=== PATIENT | male | born 1995 | race Caucasian/White ===

== ENCOUNTER 2016-07-05 11:44 | Inpatient (IN) | payer OTHER ==
[~2016-07-05] VITALS: Ht 172.7 cm; Wt 72.6 kg
[2016-07-05 12:51] LABS: MEAN CORPUSCULAR HEMOGLOBIN 29.6 pg (27.0-33.0); RED CELL DISTRIBUTION WIDTH 13.2 % (11.5-14.5); WHITE BLOOD COUNT 9.7 K/mm3 (4.0-10.0)
[2016-07-05 13:06] LABS: AMPHETAMINES LEVEL URINE NEGATIVE (NEGATIVE); BENZODIAZEPINES URINE NEGATIVE (NEGATIVE); COCAINE METABOLITE URINE NEGATIVE (NEGATIVE); CONTROL LINE INT CTR LINE PRESENT; METHADONE URINE NEGATIVE (NEGATIVE); OPIATES URINE NEGATIVE (NEGATIVE); TRICYCLIC ANTIDEPRESS URINE NEGATIVE (NEGATIVE)
[2016-07-05 13:36] LABS: ALBUMIN 4.5 GM/DL (3.2-5.2); ALBUMIN/GLOBULIN RATIO 1.45 (1.00-1.93); ALKALINE PHOSPHATASE 96 U/L (45-117); ALT/SGPT 23 U/L (12-78); ANION GAP 8 MEQ/L (8-16); AST/SGOT 17 U/L (15-37); BILIRUBIN,DIRECT 0.1 MG/DL (0.0-0.2); BILIRUBIN,TOTAL 0.5 MG/DL (0.2-1.0); BLOOD UREA NITROGEN 11 MG/DL (7-18); CALCIUM LEVEL 9.2 MG/DL (8.5-10.1); CARBON DIOXIDE LEVEL 29 MEQ/L (21-32); CHLORIDE LEVEL 102 MEQ/L (98-107); CREATININE FOR GFR 1.19 MG/DL (0.70-1.30); GLOMERULAR FILTRATION RATE > 60.0 (>60); GLUCOSE, FASTING 87 MG/DL (70-105); POTASSIUM SERUM 4.7 MEQ/L (3.5-5.1); SODIUM LEVEL 139 MEQ/L (136-145); TOTAL PROTEIN 7.6 GM/DL (6.4-8.2)
--- NOTE | 2016-07-05 17:56 | EDDOCDS ---
Physician Documentation [facility] Name: Tani De La Paz Age: 21 yrs Sex: Male : 1995 Arrival Date: 07/05/2016 Time: 11:44 Bed [facility] Private MD: Disposition: 07/05/16 14:17 Hospitalization ordered by Manish Solis for Inpatient Admission. Preliminary diagnosis is Major depressive disorder, single episode. - Bed requested for Admit. - Status is Inpatient Admission. ms2 - Condition is Stable. - Problem is new. - Symptoms are unchanged. Historical: - Allergies: no known allergies; - Home Meds: 1. none - PMHx: none; - PSHx: right knee surgery; left 5th toe was removed Xtra toe; - Social history: Smoking status: Patient uses tobacco products, current some day smoker. No barriers to communication noted, The patient speaks fluent South Korean. - Family history: Not pertinent. - : The pt / caregiver states he / she is not on anticoagulants. Home medication list is obtained from the patient. - Exposure Risk Screening:: None identified. Vital Signs: 07/05 11:52 BP 134 / 77; Pulse 76; Resp 20 S; Pulse Ox 99% on R/A; Weight 74.84 kg / 164.99 lbs; ms2 Height 5 ft. 8 in. (172.72 cm); Pain 4/10; 17:49 BP 145 / 85; Pulse 73; Resp 20 S; Temp 97.9(T); Pulse Ox 100% on R/A; ms2 11:52 Body Mass Index 25.09 (74.84 kg, 172.72 cm) ms2 11:52 right ankle ms2 MDM: 11:50 Consult PFS/PSA/Photography Teacher ordered. sd1 11:50 Consult PFS/PSA/Photography Teacher: Patient's case requires discussion with on-call sd1 Psychiatrist ordered. 11:50 PSA/PFS to call Nursing Nut Chopper, to enter patient data on [place] Safe Act if patient sd1 involuntarily admitted or transferred for SI or HI ordered. 11:50 Confirm accurate psychiatric medication list and times of last dosage ordered. sd1 11:50 Detain Pt Until Medically/PFS Cleared ordered. sd1 11:50 Acetaminophen Level Ordered. EDMS 11:50 Basic Metabolic Profile Ordered. EDMS 11:50 Complete Blood Count Ordered. EDMS 11:50 Drug Eval Toxicology ED Only Ordered. EDMS 11:50 Ethyl Alcohol (ethanol) Ordered. EDMS 11:50 Liver Profile Ordered. EDMS 11:50 Salicylate Level Ordered. EDMS 11:50 Thyroid Stimulating Hormone Ordered. EDMS 12:13 REGULAR DIET PLASTIC HERNANDEZ+DIET ordered. EDMS 12:26 Consult PFS/PSA/Photography Teacher complete. ml4 12:26 Consult PFS/PSA/Photography Teacher: Patient's case requires discussion with on-call ml4 Psychiatrist complete. 12:26 PSA/PFS to call Nursing Nut Chopper, to enter patient data on [place] Safe Act if patient ml4 involuntarily admitted or transferred for SI or HI complete. 13:52 Acetaminophen Level Reviewed. sd1 13:52 Salicylate Level Reviewed. sd1 13:52 Basic Metabolic Profile Reviewed. sd1 13:52 Complete Blood Count Reviewed. sd1 13:52 Drug Eval Toxicology ED Only Reviewed. sd1 13:52 Ethyl Alcohol (ethanol) Reviewed. sd1 13:52 Liver Profile Reviewed. sd1 13:52 Thyroid Stimulating Hormone Reviewed. sd1 14:36 [facility] Payment Agreement was scanned into [employer] and attached to record. jp5 14:36 Financial registration complete. jp5 15:14 Admit to IMHU: ordered. EDMS 15:14 REGULAR DIET ordered. EDMS 15:31 M[facility] Legal paperwork was scanned into [employer] and attached to record. ml4 16:38 REGULAR DIET PLASTIC HERNANDEZ+DIET ordered. EDMS Signatures: Dispatcher [employer] EDMS Radha Carrera MD MD sd1 Jack Sprague,RN RN ms2 Gayla Barragan, PSA PSA ml4 Nette Chawla jp5 The chart was reviewed and I authenticate all verbal orders and agree with the evaluation and treatment provided.Attachments: 14:36 [facility] Payment Agreement jp5 MTDD
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
[2016-07-05 18:09] VITALS: BP 132/86
[2016-07-05] MEDS ORDERED: MOM 30ML SUSPENSION UDC PO PRN (19:15)
[2016-07-05] MEDS ORDERED: traZODone 50 MG TAB PO PRN (19:15)
[2016-07-05] MEDS ORDERED: IBUPROFEN 400 MG TAB PO PRN (19:15)
[2016-07-05] MEDS ORDERED: MAALOX 30 ML SUSP *UDC PO PRN (19:15)
[2016-07-06 06:44] VITALS: BP 142/76
--- NOTE | 2016-07-06 11:13 | HPEPDOC ---
Medical History and Physical Date of Admission Jul 05, 2016 at 18:04 History and Physical PCP: [facility] ATTENDING: Dr. Star Rapp HPI: 21yoM admitted to [facility] for MDD, being medically examined today. No acute medical complaints today. Patient states had fallen down stairs on . He had a scalp laceration however brock were removed on Monday as per PCP. The patient had also experienced a right ankle sprain and has been wearing an ankle brace however related to laces he is unable to wear on the unit. He does not wish to use an Aircast at this time. He has been referred to physical therapy however is pending at this time. Denies any fevers, chills, weakness, fatigue, LOVE, CP, SOB, cough, palpitations, abdominal pain, N/V/D or changes in bowel or bladder habits. 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 FAMHX: Mother: Alive, hypertension, diabetes Father: , alcoholic cirrhosis Siblings: 2 brothers Alive, alcoholic. One sister healthy Children: Alive, well Unexpected deaths due to medical reasons: None. ROS: As noted in HPI, otherwise 11pt ROS of systems reviewed and unremarkable. PE: GEN: 21yoM, appears stated age. Well-nourished, well developed. No acute distress. Alert and oriented x 3. Pleasant, interactive. HEENT: Normocephalic, atraumatic. Pupils are equal, round, and reactive to light. Extraocular movements are intact. No nystagmus appreciated. Sclera are nonicteric. Conjunctiva without injection. Nose midline. Nasal turbinates without bogginess. EACs both patent BL. TMs both visualized and king with good cone of light, no bulging or erythema. No facial asymmetry. Moist mucous membranes. Dentition fair. Pharynx pink and moist, no cobblestoning. Neck supple , trachea midline. No lymphadenopathy or thyromegaly appreciated. CHEST: Regular rate and rhythm, +S1, +S2 LUNGS: Clear to auscultation bilaterally. No wheezes, rales, or rhonchi. Breathing appears symmetric and easy. Patient is speaking in full sentences. No accessory muscle use. ABD: Round, soft, non-tender, non-distended. +Bowel sounds throughout. No rebound or guarding. No costovertebral angle tenderness. EXT: Pulses 2+ bilaterally dorsalis pedis and radial. No lower extremity edema appreciated. SKIN: [place], dry, warm. Capillary refill <2sec. few healing lacerations left forearm (pt states self inflicted 2 weeks ago). NEURO: Alert and oriented x 3. Cranial nerves III-XII are intact. No focal deficits appreciated. EKG: pending. A&P: 21yoM admitted to [facility] for MDD 1. Psych. Plan per Psychiatry. Obtain baseline EKG to assure the safety of psychiatric medications as they can prolong the QT interval. 2. History of scalp laceration. healed. Brock previously removed. 3. History of fall/right ankle sprain. Patient previously wearing brace, however unable to wear related to laces. Patient declines Aircast this time. PT eval and treat as needed. Ibuprofen as needed. 4. Follow up with PCP on discharge. [facility]. 5. Substance use. Withdrawal per psychiatry. Continue with MVI, Thiamine, and Folic Acid supplementation. 6. Staff member present throughout exam, Phani parekh. Vital Signs Vital Signs Label Value Date Time Patient Temperature 97.4 degrees F 07/06/16 0644 Temperature Source Tympanic 07/06/16 0644 Pulse 77 07/06/16 0644 Respiratory Rate 16 bpm 07/06/16 0644 Blood Pressure Assessment 142/76 (98) 07/06/16 0644 Laboratory Data Labs 24H Laboratory Tests 2 07/05/16 12:05: Acetaminophen Level < 2.0L, Aspartate Amino Transf (AST/SGOT) 17, Alanine Aminotransferase (ALT/SGPT) 23, Alkaline Phosphatase 96, Total Bilirubin 0.5, Direct Bilirubin 0.1, Albumin 4.5, Albumin/Globulin Ratio 1.45, Anion Gap 8, Calcium Level 9.2, Ethyl Alcohol Level < 0.003, Glomerular Filtration Rate > 60.0, Salicylates Level < 1.7L, Thyroid Stimulating Hormone (TSH) 0.707, Total Protein 7.6, Urine Amphetamine Level NEGATIVE, Urine Benzodiazepines Screen NEGATIVE, Urine Cannabinoids NEGATIVE, Urine Cocaine Metabolite NEGATIVE, Urine Opiates Screen NEGATIVE, Urine Barbiturates, Qualitative NEGATIVE, Urine Methadone Screen NEGATIVE, Urine Tricyclic Antidepressants NEGATIVE CBC/BMP Laboratory Tests 07/05/16 12:05 Red Blood Count 5.24, Mean Corpuscular Volume 87.0, Mean Corpuscular Hemoglobin 29.6, Mean Corpuscular Hemoglobin Concent 34.0, Red Cell Distribution Width 13.2 Home Medications No Active Prescriptions or Reported Meds Allergies Coded Allergies: No Known Allergies (Unverified , 07/05/16) Crissy Arroyo Jul 06, 2016 11:13
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
--- NOTE | 2016-07-06 17:29 | ECGEPIP ---
Stationary ECG Study [facility] Test Date: 2016-07-06 Pat Name: KARUNA MONTENEGRO Department: Room: [place] [address] Gender: M Blade Filer: TEAGAN : 1995 Requested By: Crissy Arroyo Order Number: [id number] Reading MD: Star Rapp Measurements Intervals [place] Rate: 60 P: 30 [place]: 143 QRS: 64 QRSD: 97 T: 38 QT: 400 QTc: 401 Interpretive Statements SINUS RHYTHM WITH SINUS ARRHYTHMIA Comparison tracing not on file Electronically Signed On 07-06-2016 17:28:57 EST by Star Rapp
[2016-07-06 18:00] VITALS: BP 115/56
[2016-07-07 06:11] VITALS: BP 123/70
[2016-07-07] MEDS ORDERED: SERTRALINE HCL 25 MG TABLET PO ONE (11:45)
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
[2016-07-07 18:00] VITALS: BP 134/59
--- NOTE | 2016-07-07 18:56 | EDDOCDS ---
Physician Documentation [facility] Name: Tani De La Paz Age: 21 yrs Sex: Male : 1995 Arrival Date: 07/05/2016 Time: 11:44 Bed [facility] Private MD: Disposition: 07/05/16 14:17 Hospitalization ordered by Manish Solis for Inpatient Admission. Preliminary diagnosis is Major depressive disorder, single episode. - Bed requested for Admit. - Status is Inpatient Admission. ms2 - Condition is Stable. - Problem is new. - Symptoms are unchanged. Historical: - Allergies: no known allergies; - Home Meds: 1. none - PMHx: none; - PSHx: right knee surgery; left 5th toe was removed Xtra toe; - Social history: Smoking status: Patient uses tobacco products, current some day smoker. No barriers to communication noted, The patient speaks fluent Tajik. - Family history: Not pertinent. - : The pt / caregiver states he / she is not on anticoagulants. Home medication list is obtained from the patient. - Exposure Risk Screening:: None identified. Vital Signs: 07/05 11:52 BP 134 / 77; Pulse 76; Resp 20 S; Pulse Ox 99% on R/A; Weight 74.84 kg / 164.99 lbs; ms2 Height 5 ft. 8 in. (172.72 cm); Pain 4/10; 17:49 BP 145 / 85; Pulse 73; Resp 20 S; Temp 97.9(T); Pulse Ox 100% on R/A; ms2 11:52 Body Mass Index 25.09 (74.84 kg, 172.72 cm) ms2 11:52 right ankle ms2 MDM: 11:50 Consult PFS/PSA/Motel Food Service Supervisor ordered. sd1 11:50 Consult PFS/PSA/Motel Food Service Supervisor: Patient's case requires discussion with on-call sd1 Psychiatrist ordered. 11:50 PSA/PFS to call Nursing Doll Eye Setter, to enter patient data on [place] Safe Act if patient sd1 involuntarily admitted or transferred for SI or HI ordered. 11:50 Confirm accurate psychiatric medication list and times of last dosage ordered. sd1 11:50 Detain Pt Until Medically/PFS Cleared ordered. sd1 11:50 Acetaminophen Level Ordered. EDMS 11:50 Basic Metabolic Profile Ordered. EDMS 11:50 Complete Blood Count Ordered. EDMS 11:50 Drug Eval Toxicology ED Only Ordered. EDMS 11:50 Ethyl Alcohol (ethanol) Ordered. EDMS 11:50 Liver Profile Ordered. EDMS 11:50 Salicylate Level Ordered. EDMS 11:50 Thyroid Stimulating Hormone Ordered. EDMS 12:13 REGULAR DIET PLASTIC HERNANDEZ+DIET ordered. EDMS 12:26 Consult PFS/PSA/Motel Food Service Supervisor complete. ml4 12:26 Consult PFS/PSA/Motel Food Service Supervisor: Patient's case requires discussion with on-call ml4 Psychiatrist complete. 12:26 PSA/PFS to call Nursing Doll Eye Setter, to enter patient data on [place] Safe Act if patient ml4 involuntarily admitted or transferred for SI or HI complete. 13:52 Acetaminophen Level Reviewed. sd1 13:52 Salicylate Level Reviewed. sd1 13:52 Basic Metabolic Profile Reviewed. sd1 13:52 Complete Blood Count Reviewed. sd1 13:52 Drug Eval Toxicology ED Only Reviewed. sd1 13:52 Ethyl Alcohol (ethanol) Reviewed. sd1 13:52 Liver Profile Reviewed. sd1 13:52 Thyroid Stimulating Hormone Reviewed. sd1 14:36 [facility] Payment Agreement was scanned into [employer] and attached to record. jp5 14:36 Financial registration complete. jp5 15:14 Admit to IMHU: ordered. EDMS 15:14 REGULAR DIET ordered. EDMS 15:31 MHE Legal paperwork was scanned into [employer] and attached to record. ml4 16:38 REGULAR DIET PLASTIC HERNANDEZ+DIET ordered. EDMS 07/06 11:53 T-Sheet-- Draft Copy was scanned into Stam[employer] and attached to record. gb Signatures: Dispatcher [employer] EDAL Radha Carrera MD MD sd1 Jack Sprague,RN RN ms2 Whitney Brunner, Reg Reg gb Gayla Barragan, PSA PSA ml4 Nette Chawla jp5 The chart was reviewed and I authenticate all verbal orders and agree with the evaluation and treatment provided.Attachments: 07/05 14:36 [facility] Payment Agreement jp5 07/06 11:53 T-Sheet-- Draft Copy gb Chart Complete MTDD
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
--- NOTE | 2016-07-07 18:56 | EDDOCDS ---
Physician Documentation [facility] Name: Tani De La Paz Age: 21 yrs Sex: Male : 1995 Arrival Date: 07/05/2016 Time: 11:44 Bed [facility] Private MD: Disposition: 07/05/16 14:17 Hospitalization ordered by Manish Solis for Inpatient Admission. Preliminary diagnosis is Major depressive disorder, single episode. - Bed requested for Admit. - Status is Inpatient Admission. ms2 - Condition is Stable. - Problem is new. - Symptoms are unchanged. Historical: - Allergies: no known allergies; - Home Meds: 1. none - PMHx: none; - PSHx: right knee surgery; left 5th toe was removed Xtra toe; - Social history: Smoking status: Patient uses tobacco products, current some day smoker. No barriers to communication noted, The patient speaks fluent Tunisian. - Family history: Not pertinent. - : The pt / caregiver states he / she is not on anticoagulants. Home medication list is obtained from the patient. - Exposure Risk Screening:: None identified. Vital Signs: 07/05 11:52 BP 134 / 77; Pulse 76; Resp 20 S; Pulse Ox 99% on R/A; Weight 74.84 kg / 164.99 lbs; ms2 Height 5 ft. 8 in. (172.72 cm); Pain 4/10; 17:49 BP 145 / 85; Pulse 73; Resp 20 S; Temp 97.9(T); Pulse Ox 100% on R/A; ms2 11:52 Body Mass Index 25.09 (74.84 kg, 172.72 cm) ms2 11:52 right ankle ms2 MDM: 11:50 Consult PFS/PSA/Software Design Manager ordered. sd1 11:50 Consult PFS/PSA/Software Design Manager: Patient's case requires discussion with on-call sd1 Psychiatrist ordered. 11:50 PSA/PFS to call Nursing Resaw Tailer, to enter patient data on [place] Safe Act if patient sd1 involuntarily admitted or transferred for SI or HI ordered. 11:50 Confirm accurate psychiatric medication list and times of last dosage ordered. sd1 11:50 Detain Pt Until Medically/PFS Cleared ordered. sd1 11:50 Acetaminophen Level Ordered. EDMS 11:50 Basic Metabolic Profile Ordered. EDMS 11:50 Complete Blood Count Ordered. EDMS 11:50 Drug Eval Toxicology ED Only Ordered. EDMS 11:50 Ethyl Alcohol (ethanol) Ordered. EDMS 11:50 Liver Profile Ordered. EDMS 11:50 Salicylate Level Ordered. EDMS 11:50 Thyroid Stimulating Hormone Ordered. EDMS 12:13 REGULAR DIET PLASTIC HERNANDEZ+DIET ordered. EDMS 12:26 Consult PFS/PSA/Software Design Manager complete. ml4 12:26 Consult PFS/PSA/Software Design Manager: Patient's case requires discussion with on-call ml4 Psychiatrist complete. 12:26 PSA/PFS to call Nursing Resaw Tailer, to enter patient data on [place] Safe Act if patient ml4 involuntarily admitted or transferred for SI or HI complete. 13:52 Acetaminophen Level Reviewed. sd1 13:52 Salicylate Level Reviewed. sd1 13:52 Basic Metabolic Profile Reviewed. sd1 13:52 Complete Blood Count Reviewed. sd1 13:52 Drug Eval Toxicology ED Only Reviewed. sd1 13:52 Ethyl Alcohol (ethanol) Reviewed. sd1 13:52 Liver Profile Reviewed. sd1 13:52 Thyroid Stimulating Hormone Reviewed. sd1 14:36 [facility] [place] Agreement was scanned into [employer] and attached to record. jp5 14:36 Financial registration complete. jp5 15:14 Admit to [facility]HU: ordered. EDMS 15:14 REGULAR DIET ordered. EDMS 15:31 [facility] Legal paperwork was scanned into [employer] and attached to record. ml4 16:38 REGULAR DIET PLASTIC HERNANDEZ+DIET ordered. EDMS 07/06 11:53 T-Sheet-- Draft Copy was scanned into [employer] and attached to record. gb Signatures: Dispatcher [employer] EDNE Radha Carrera MD MD sd1 Jack Sprague,RN RN ms2 Whitney Brunner, Reg Reg gb Gayla Barragan, PSA PSA ml4 Nette Chawla jp5 The chart was reviewed and I authenticate all verbal orders and agree with the evaluation and treatment provided.Attachments: 07/05 14:36 [facility] [place] Agreement jp5 07/06 11:53 T-Sheet-- Draft Copy gb Chart Complete MTDD
[2016-07-08 06:13] VITALS: BP 135/79
[2016-07-08] MEDS: SERTRALINE HCL 50 MG TAB PO SCH (09:13)
--- NOTE | 2016-07-08 17:53 | IPNPDOC ---
[facility] Progress Note Progress Note DATE OF SERVICE: 07/08/16 HISTORY: Patient was met with on the inpatient psychiatric unit to evaluate his response to treatment. Patient is observed to be lying in bed reading and sits up to meet with underwriter. Patient is quick to inform underwriter that he has been attending some groups, reading and room at other times. Patient denies engaging in isolate behavior, informs underwriter he is generally an introvert, and prefers time alone. Patient denies symptoms of anxiety today, reports depression level of 3/10, denies suicidal and homicidal ideation, denies audiovisual hallucinations, and denies urge to engage in self-injurious behavior. Patient indicates he is expressing some relief due to his child's health status improving, Patient indicates he continues to speak with his several times per day and remains hopeful that relationship can be sustained. Patient states he is sleeping well, denies nightmares symptoms, denies challenges with concentration and energy level, indicates appetite is stable. Patient has been taking Zoloft 2 days with titration to 50 mg po q am which he started today. Patient informs underwriter he is "not sure, maybe" he is feeling some positive effect of the medication, denies side effects. Patient remains aware he has medication available to him for insomnia. VITAL SIGNS: See below. NEW TEST RESULTS: None new. 07/06/16 EKG - SINUS RHYTHM WITH SINUS ARRHYTHMIA. PA has evaluated with no further treatment indicated. On admission, labs within normal limits, UDS negative on admission. Patient recently had benjamín removed from head which were the result of falling down stairs intoxicated state on new years, has history of sprained right ankle , right knee surgery, left fifth toe removal, benign cyst to right ear. 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 Patient reports history of elevated blood pressure, denies ever being treated for HTN. CURRENT MEDICATIONS: See below. MENTAL STATUS EXAMINATION: Patient is a 21-year old marreied male, who is pleasant, cooperative, disheveled, is dressed in hospital clothing and appears stated age. Speech: Is normal rate, rhythm, volume, spontaneous. Thought processes: Clear, Goal directed. Rate of thoughts: Normal Thought content: Logical. Abstract reasoning: Within normal limits. Associations: Intact. Abnormal or psychotic thoughts: Denies hallucinations, Delusions, Preoccupation with violence, Homicidal or suicidal ideation, and Obsessions. Judgment: Poor, some improvement Insight: Poor, some improvement Oriented to: Time, place and person Recent and Remote Memory: Intact. Attention Span and Concentration: Intact. Language: Normal. Fund of knowledge: Adequate. Mood: "Better today, I feel like I'm seeing things clearer." Affect: Constricted but brightens 2, generally congruent with mood. 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 Patient continues to minimize alcohol use but today indicates he feels he may need [facility] treatment upon return to [place]. Patient expresses increased insight related to events just prior to current hospitalization, however, continues to minimize gravity events. Patient denies current suicidal and homicidal ideation, is able to effectively engage in the safety planning process and verbalizes understanding of how to access supportive services on unit if needed. Will continue to monitor patient's response to Zoloft in effort to address symptoms of depression and previously reported symptoms of anxiety, with plan to titrate as tolerated by patient. Will continue to provide patient with supportive environment and encourage patient to participate in unit programming to aid with development of effective coping skills. Patient clearly verbalizes desire to remain in the , though would prefer a duty station closer to his family in [place], indicates he plans to make request. Patient is in agreement with eventual discharge plan to return to [place] outpatient behavioral health for psychotherapy and medication management services, and is in agreement with [facility] participation and IOP evaluation. MANAGEMENT PLAN: Continue Zoloft 50 mg po q am with titration as tolerated by patient Patient remains aware that he has trazodone available to him for sleep if needed Maintain safety precautions Patient to attend groups and participate in unit programming to develop coping strategies Engage patient in discharge planning process and arrange meeting with command to evaluate safe discharge planning when appropriate Patient to follow-up with outpatient [place] [facility], [facility], and IOP Patient to follow up with [place] [facility] upon discharge Vital Signs/I&O Vital Signs Date Time Temp Pulse Resp B/P Pulse Ox O2 Delivery O2 Flow Rate FiO2 07/08/16 06:13 97.4 73 18 135/79 07/05/16 18:09 100 Room Air Current Medications Current Medications Al Hydrox/Mg Hydrox/Simethicone (Mylanta) 30 ml Q4HP PRN PO HEARTBURN/ INDIGESTION; Start 07/05/16 at 19:15; Stop 08/04/16 at 19:14 Home Med (Med Rec Complete!) ASDIRECTED XX ; Start 07/05/16 at 14:45; Stop 04/11 at 14:45; Status DC Ibuprofen (Advil) 400 mg Q6HP PRN PO PAIN; Start 07/05/16 at 19:15; Stop at 19:14 Magnesium Hydroxide (Milk Of Magnesia) 30 ml DAILYPRN PRN PO CONSTIPATION; Start 07/05/16 at 19:15; Stop 08/04/16 at 19:14 Sertraline HCl (Zoloft) 25 mg NOW ONCE PO Last administered on 07/07/16 11:51 ; Start 07/07/16 at 11:45; Stop 07/07/16 at 11:46; Status DC Sertraline HCl (Zoloft) 50 mg QAM PO Last administered on 07/08/16 09:13; Start 07/08/16 at 09:00; Stop 08/07/16 at 08:59 Trazodone HCl (Desyrel) 50 mg QHSP PRN PO INSOMNIA; Start 07/05/16 at 19:15; Stop 08/04/16 at 19:14 Allergies Coded Allergies: No Known Allergies (Unverified , 07/05/16) Marilee Berg Jul 08, 2016 17:53
[2016-07-08 18:00] VITALS: BP 112/70
[2016-07-09 06:18] VITALS: BP 115/58
[2016-07-09] MEDS: SERTRALINE HCL 50 MG TAB PO SCH (08:13)
[2016-07-09 18:00] VITALS: BP 126/71
[2016-07-10 06:25] VITALS: BP 111/61
[2016-07-10] MEDS: SERTRALINE HCL 50 MG TAB PO SCH (08:17)
--- NOTE | 2016-07-10 09:32 | IPN ---
DATE: 07/09/2016 The patient today states, "I am doing better." He has no complaints. I am not eliciting any mood symptoms. He says that his mood is about a 1 out of 10 where the closest to 10 is the most depressed. He says that he is sleeping good. MENTAL STATUS EXAMINATION: This patient is alert and oriented times three. Eye contact is fair. Psychomotor activity is normal. He is verbally spontaneous. There is no formal thought disorder noted. He says that his mood is good. Affect is full range and appropriate. He is not psychotic, suicidal or homicidal ideation. Concentration is fair. Memory is intact. Insight and judgment good. DIAGNOSES: 1. Adjustment disorder with mixed anxiety and depression. 2. Alcohol use disorder. TREATMENT PLAN: At this point, we will further observe and evaluate this patient for any possible depressive symptomatology. At this point, he says that he is not depressed. We will monitor for further stabilization of his mood and continued resolution of suicidal ideations. He is tolerating the Zoloft well so far and we will continue to titrate that as indicated.
[2016-07-10 18:00] VITALS: BP 119/56
[2016-07-11 06:00] VITALS: BP 117/62
[2016-07-11] MEDS: SERTRALINE HCL 50 MG TAB PO SCH (08:29)
--- NOTE | 2016-07-11 12:16 | IPNPDOC ---
Date/Time Seen The patient was seen on 07/11/16 at 12:07. Progress Note SUBJECTIVE: 21yoM admitted to [facility] for MDD, quested to reevaluate the patient related to left elbow pain. Patient states had fallen down stairs on . He had a scalp laceration however benjamín were previously removed and the laceration is well-healed. The patient had also experienced a right ankle sprain and has been wearing an ankle brace however the patient states this is improved and he has no longer needed to wear the brace. Since this fall he has noticed some left elbow pain which has not resolved on its own. Initially he did not notice the pain following the fall however he states last evening he tried to do some pushups and noticed pain. He denies any neck pain. No wrist pain. No numbness or tingling in the upper extremity. No erythema. No bruising. No swelling. Denies any fevers, chills, weakness, fatigue, LOVE, CP, SOB, cough, palpitations , abdominal pain, N/V/D or changes in bowel or bladder habits. PHYSICAL EXAMINATION: 21yoM, appears stated age. Well-nourished, well developed. No acute distress. Alert and oriented x 3. Pleasant, interactive. HEENT: Normocephalic, atraumatic. Pupils are equal, round, and reactive to light. No facial asymmetry. Moist mucous membranes. Dentition fair. Pharynx pink and moist. Neck supple, trachea midline. CHEST: Regular rate and rhythm, +S1, +S2 LUNGS: Clear to auscultation bilaterally. No wheezes, rales, or rhonchi. Breathing appears symmetric and easy. Patient is speaking in full sentences. No accessory muscle use. ABD: Round, soft, non-tender, non-distended. +Bowel sounds throughout. No rebound or guarding. No costovertebral angle tenderness. EXT: Pulses 2+ bilaterally dorsalis pedis and radial. No lower extremity edema appreciated. SKIN: [place], dry, warm. NEURO: Alert and oriented x 3. Cranial nerves III-XII are intact. No focal deficits appreciated. There is no tenderness with palpation over the lateral or medial aspects of the elbow. There is mild discomfort with range of motion, flexion. There is mild tenderness with palpation over the posterior aspect. There is no erythema. No swelling. No pain with palpation over the shoulder joint or wrist joint. DVT prophylaxis: Ambulatory. PROBLEMS: 21yoM admitted to [facility] for MDD 1. Psych. Plan per Psychiatry. Obtain baseline EKG to assure the safety of psychiatric medications as they can prolong the QT interval. 2. History of scalp laceration. healed. Benjamín previously removed. 3. History of fall/right ankle sprain. Patient previously wearing brace, however pain is currently resolved. Ibuprofen as needed. 4. Follow up with PCP on discharge. [facility]. 5. Substance use. Withdrawal per psychiatry. Continue with MVI, Thiamine, and Folic Acid supplementation. 6. Left elbow pain. Check x-ray of left elbow. Ice as needed. Ibuprofen as needed. 7. Staff member present throughout exam, Mervin parekh. DISPOSITION: as per Psychiatry. VS, I&O, 24H, Fishbone VS, I&O, 24H, Fishbone Vital Signs Date Time Temp Pulse Resp B/P Pulse Ox O2 Delivery O2 Flow Rate FiO2 07/11/16 06:00 96.2 62 16 117/62 07/05/16 18:09 100 Room Air Crissy Arroyo Jul 11, 2016 12:16
--- NOTE | 2016-07-11 15:07 | REP ---
Left elbow series: Four views. History: Pain. History of a fall. Findings: Four views of the left elbow demonstrate normal bones, joints, and soft tissues. No evidence of fracture, subluxation or joint effusion. Impression: Negative left elbow series. Signed by Stiven Antonio MD 07/11/2016 03:35 P
--- NOTE | 2016-07-11 17:21 | IPNPDOC ---
[facility] Progress Note Progress Note DATE OF SERVICE: 07/11/16 HISTORY: Patient was met with on the inpatient psychiatric unit to evaluate his response to treatment. Patient is observed to be reading in bed between groups, readily sits up to meet with internal communications writer. Patient has been attending most groups, has been visible on unit, and is engaging with select peers. Patient denies all anxiety and depression, denies suicidal and homicidal ideation, denies audiovisual hallucinations, and denies urge to engage in self-injurious behavior. Patient verbalizes awareness that he has a chain of command meeting scheduled for tomorrow morning at 09:30, notes knowledge of plan to discharge after that meeting back to [facility] for safety check and follow-up outpatient treatment. Patient is in agreement with plan and indicates he feels. For discharge. Patient states he and of been communicating regularly by phone and states conversations have been going well, plans to return to [place] in November, she notes he and plan to attend marital counseling at that time. Patient states he is sleeping well, denies nightmares symptoms, denies challenges with concentration and energy level, indicates appetite is good. Patient has been taking Zoloft 50 mg po q am, informs internal communications writer he feels medication is helpful and he denies medication side effects. Patient remains aware he has medication available to him for insomnia as needed. VITAL SIGNS: See below. NEW TEST RESULTS: None new. 07/06/16 EKG - SINUS RHYTHM WITH SINUS ARRHYTHMIA. PA has evaluated with no further treatment indicated. On admission, labs within normal limits, UDS negative on admission. Patient recently had benjamín removed from head which were the result of falling down stairs intoxicated state on new years, has history of sprained right ankle , right knee surgery, left fifth toe removal, benign cyst to right ear. 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 Patient reports history of elevated blood pressure, denies ever being treated for HTN. CURRENT MEDICATIONS: See below. MENTAL STATUS EXAMINATION: Patient is a 21-year old male, who is pleasant, cooperative, displays adequate hygiene and is dressed in hospital clothing and appears stated age. Speech: Is normal rate, rhythm, volume, spontaneous. Thought processes: Clear, Goal directed. Rate of thoughts: Normal Thought content: Logical. Abstract reasoning: Within normal limits. Associations: Intact. Abnormal or psychotic thoughts: Denies hallucinations, Delusions, Preoccupation with violence, Homicidal or suicidal ideation, and Obsessions. Judgment: Fair, continues to improve Insight: Fair, continues to improve Oriented to: Time, place and person Recent and Remote Memory: Intact. Attention Span and Concentration: Intact. Language: Normal. Fund of knowledge: Adequate. Mood: "Better, my head is clear." Affect: Full range, brightens frequently during interaction and is congruent with mood. 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 Patient no longer minimizes alcohol use , verbalizes impact on relationship with , and today agrees to follow up with [facility] post discharge to [place]. Patient also expresses increased insight related to events just prior to current hospitalization. Patient denies current suicidal and homicidal ideation, is able to effectively engage in the safety planning process and verbalizes understanding of how to access supportive services on unit if needed. Will continue to monitor patient's response to Zoloft in effort to address symptoms of depression and previously reported symptoms of anxiety, patient denies need for dosing adjustment, is aware he'll be following up with outpatient provider. Will continue to provide patient with supportive environment and encourage patient to participate in unit programming to aid with development of effective coping skills. Patient reiterates desire to remain in the , though would prefer a duty station closer to his family in [place], indicates he intends to make request adding he is slated for [facility] December/January,. Patient indicates he feels prepared for discharge and remains in agreement with discharge plan to return to [place] outpatient behavioral health for psychotherapy and medication management services, and is in agreement with [facility] participation and IOP evaluation. MANAGEMENT PLAN: Continue Zoloft 50 mg po q am with titration as tolerated by patient Patient remains aware that he has trazodone available to him for sleep if needed Maintain safety precautions Patient to attend groups and participate in unit programming to develop coping strategies Engage patient in discharge planning process and arrange meeting with command to evaluate safe discharge planning when appropriate Patient to follow-up with outpatient [facility], [facility], and IOP Patient to follow up with [facility] upon discharge Vital Signs/I&O Vital Signs Date Time Temp Pulse Resp B/P Pulse Ox O2 Delivery O2 Flow Rate FiO2 07/11/16 06:00 96.2 62 16 117/62 07/05/16 18:09 100 Room Air Current Medications Current Medications Al Hydrox/Mg Hydrox/Simethicone (Mylanta) 30 ml Q4HP PRN PO HEARTBURN/ INDIGESTION; Start 07/05/16 at 19:15; Stop 08/04/16 at 19:14 Home Med (Med Rec Complete!) ASDIRECTED XX ; Start 07/05/16 at 14:45; Stop 04/11 at 14:45; Status DC Ibuprofen (Advil) 400 mg Q6HP PRN PO PAIN; Start 07/05/16 at 19:15; Stop at 19:14 Magnesium Hydroxide (Milk Of Magnesia) 30 ml DAILYPRN PRN PO CONSTIPATION; Start 07/05/16 at 19:15; Stop 08/04/16 at 19:14 Sertraline HCl (Zoloft) 25 mg NOW ONCE PO Last administered on 07/07/16 11:51 ; Start 07/07/16 at 11:45; Stop 07/07/16 at 11:46; Status DC Sertraline HCl (Zoloft) 50 mg QAM PO Last administered on 07/11/16 08:29; Start 07/08/16 at 09:00; Stop 08/07/16 at 08:59 Trazodone HCl (Desyrel) 50 mg QHSP PRN PO INSOMNIA; Start 07/05/16 at 19:15; Stop 08/04/16 at 19:14 Allergies Coded Allergies: No Known Allergies (Unverified , 07/05/16) Marilee Berg Jul 11, 2016 17:21
[2016-07-11 18:00] VITALS: BP 136/78
[2016-07-12 06:38] VITALS: BP 133/82
[2016-07-12] MEDS: SERTRALINE HCL 50 MG TAB PO SCH (08:34)
[2016-07-12] MEDS ORDERED: SERT-141 PO (09:44)
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
== END 2016-07-12 10:10 | disposition home or self-care (01) | DRG 882 ==
LOC: M ED 11:44 → M PSY 18:04
PROVIDERS: ADMIT Psychiatry & Neurology Psychiatry; ATTEND Psychiatry & Neurology Psychiatry
DX: F43.23 Adjustment disorder with mixed anxiety and depressed mood (principal); F10.10 Alcohol abuse, uncomplicated